=== PATIENT | female | born 1980 | race Native Hawaiian/Other Pacific Islander ===

== ENCOUNTER 2017-08-27 11:59 | Emergency (ER) | payer BC ==
[~2017-08-27] VITALS: Ht 154.9 cm; Wt 56.7 kg
[~2017-08-27 11:59] MED LIST: [UNRECOGNIZED DRUG - CODE]
[2017-08-27 12:00] VITALS: BP_SYST 99
--- NOTE | 2017-08-27 12:10 | NUR ---
Ambulatory to bed 2
--- NOTE | 2017-08-27 12:20 | NUR ---
Dr. Joyce at bedside for evaluation
[2017-08-27] MEDS ORDERED: NACL 0.9% 1,000 ML IV ONE (12:22)
[2017-08-27] MEDS ORDERED: MORPHINE 2 MG/ML INJ. SYRINGE IVP ONE (12:30)
[2017-08-27] MEDS ORDERED: ONDANSETRON HCL 4 MG/2 ML VIAL IVP ONE (12:30)
--- NOTE | 2017-08-27 12:50 | NUR ---
Pt c/o uppper abd pain since this morning +vomiting. Constant, squeezing pain. States she had a similar episode in 2009 and was dx with gastritis. Denies diarrhea, denies chest pain, denies shortness of breath. +numbness/tingling in both hands and feet. ER MD aware
[2017-08-27 13:01] LABS: BASOPHILS % (AUTO) 0.3 % (0.0-2.0); EOSINOPHILS # (AUTO) 0.2 K/uL (0.0-0.4); EOSINOPHILS % (AUTO) 1.9 % (0.0-4.0); HEMATOCRIT 37.6 % (36-48); HEMOGLOBIN 13.1 g/dL (12.0-16.0); LYMPHOCYTES # (AUTO) 1.8 K/uL (1.0-5.5); LYMPHOCYTES % (AUTO) 19.2 % (20.5-51.5); MEAN CORPUSCULAR HEMOGLOBIN 32 pg (27-31); MEAN CORPUSCULAR HGB CONC 35 % (32-36); MEAN CORPUSCULAR VOLUME 93 fL (79.0-98.0); MONOCYTES # (AUTO) 0.3 K/uL (0.0-1.0); MONOCYTES % (AUTO) 3.2 % (1.7-9.3); NEUTROPHILS # (AUTO) 7.1 K/uL (1.8-7.7); NEUTROPHILS % (AUTO) 75.4 % (40.0-70.0); PLATELET COUNT (AUTO) 290 K/uL (130-430); RED BLOOD CELL COUNT(AUTO) 4.03 MIL/uL (4.2-6.2); RED CELL DISTRIBUTION WIDTH 11.4 % (9.0-15.0); WHITE BLOOD COUNT (AUTO) 9.4 K/uL (4.8-10.8)
--- NOTE | 2017-08-27 13:05 | NUR ---
Medicated per MD orders. IVF infusing with no s/s of infiltration at this time. Will cont to monitor
--- NOTE | 2017-08-27 13:05 | NUR ---
Warm blanket provided to pt.
[2017-08-27 13:12] LABS: BILIRUBIN,URINE NEGATIVE (NEGATIVE); BLOOD, URINE 2+ (NEGATIVE); CLARITY/URINE CLEAR (CLEAR); COLOR,URINE YELLOW (YELLOW); GLUCOSE,URINE NEGATIVE (NEGATIVE); KETONES,URINE 2+ (NEGATIVE); LEUKOCYTE ESTERASE ,URINE NEGATIVE (NEGATIVE); NITRITE, URINE NEGATIVE (NEGATIVE); PROTEIN URINE NEGATIVE (NEGATIVE); UROBILINOGEN,URINE 0.2 (0.2-1.0)
[2017-08-27 13:13] LABS: CALCIUM 9.4 mg/dL (8.4-11.0); CREATININE 0.62 mg/dL (0.55-1.30); POTASSIUM 3.3 mmol/L (3.5-5.1)
[2017-08-27 13:16] LABS: ALBUMIN 4.4 g/dL (3.4-4.8); TOTAL BILIRUBIN 1.1 mg/dL (0.0-1.0)
[2017-08-27 13:30] LABS: BACTERIA,URINE FEW /HPF (None Seen); RBC,URINE 0-3 /HPF (0-3)
[2017-08-27 14:20] VITALS: BP_SYST 115
--- NOTE | 2017-08-27 14:20 | NUR ---
Patient given written and verbal discharge instructions and verbalizes understanding. ER MD discussed with patient the results and treatment provided. Patient in stable condition. ID arm band removed. IV catheter removed intact and dressing applied, no active bleeding. No Rx given. Patient educated on pain management and to follow up with PMD. Pain Scale 3/10. Opportunity for questions provided and answered.
== END 2017-08-27 14:20 | disposition home or self-care (01) ==
LOC: SED 11:59
DX: K29.70 Gastritis, unspecified, without bleeding (principal); Z88.6 Allergy status to analgesic agent
CPT/HCPCS: 36415; 80053; 81000; 81025; 83690; 85025; 96361; 96374; 96375; 99284; J2270; J2405; J7030

== ENCOUNTER 2017-08-30 11:03 | Inpatient (IN) | payer BC ==
[~2017-08-30] VITALS: Ht 154.9 cm; Wt 49.9 kg
[2017-08-30 11:03] VITALS: BP_SYST 143
[~2017-08-30 11:03] MED LIST changes: +BISM262T15; -[UNRECOGNIZED DRUG - CODE]
[2017-08-30] MEDS ORDERED: MAG HYDROX/AL HYDROX/SIMETH 30 ML, LIDOCAINE VISCOUS 2% 15ML (PO) 10 ML, BELLADONNA ALK... PO ONE ×3 (11:30)
[2017-08-30 13:38] LABS: BILIRUBIN,URINE 2+ (NEGATIVE); BLOOD, URINE 3+ (NEGATIVE); CLARITY/URINE CLEAR (CLEAR); COLOR,URINE YELLOW (YELLOW); GLUCOSE,URINE NEGATIVE (NEGATIVE); KETONES,URINE 3+ (NEGATIVE); LEUKOCYTE ESTERASE ,URINE NEGATIVE (NEGATIVE); NITRITE, URINE NEGATIVE (NEGATIVE); PH,URINE 7.5 (5.0-8.0); PROTEIN URINE NEGATIVE (NEGATIVE); UROBILINOGEN,URINE 0.2 (0.2-1.0)
[2017-08-30 13:40] LABS: BASOPHILS % (AUTO) 0.7 % (0.0-2.0); EOSINOPHILS # (AUTO) 0.1 K/uL (0.0-0.4); EOSINOPHILS % (AUTO) 1.2 % (0.0-4.0); HEMATOCRIT 39.3 % (36-48); HEMOGLOBIN 13.4 g/dL (12.0-16.0); LYMPHOCYTES # (AUTO) 1.2 K/uL (1.0-5.5); LYMPHOCYTES % (AUTO) 23.2 % (20.5-51.5); MEAN CORPUSCULAR HEMOGLOBIN 32 pg (27-31); MEAN CORPUSCULAR HGB CONC 34 % (32-36); MEAN CORPUSCULAR VOLUME 93 fL (79.0-98.0); MONOCYTES # (AUTO) 0.4 K/uL (0.0-1.0); MONOCYTES % (AUTO) 6.8 % (1.7-9.3); NEUTROPHILS # (AUTO) 3.7 K/uL (1.8-7.7); NEUTROPHILS % (AUTO) 68.1 % (40.0-70.0); PLATELET COUNT (AUTO) 320 K/uL (130-430); RED BLOOD CELL COUNT(AUTO) 4.26 MIL/uL (4.2-6.2); RED CELL DISTRIBUTION WIDTH 11.6 % (9.0-15.0); WHITE BLOOD COUNT (AUTO) 5.4 K/uL (4.8-10.8)
[2017-08-30 13:47] LABS: CALCIUM 9.6 mg/dL (8.4-11.0); CREATININE 0.52 mg/dL (0.55-1.30); POTASSIUM 3.4 mmol/L (3.5-5.1)
[2017-08-30 14:01] LABS: BACTERIA,URINE RARE /HPF (None Seen); WBC,URINE 0-3 /HPF (0-3)
[2017-08-30 14:02] LABS: TOTAL BILIRUBIN 4.3 mg/dL (0.0-1.0)
[2017-08-30 15:59] VITALS: BP_SYST 132
[2017-08-30] MEDS ORDERED: ONDANSETRON HCL 4 MG/2 ML VIAL IVP PRN (17:00)
[2017-08-30] MEDS ORDERED: METOCLOPRAMIDE HCL 10 MG/2 ML VIAL IVP PRN (17:00)
[2017-08-30] MEDS ORDERED: D5/0.45 NS 1,000 ML IV SCH (17:00)
[2017-08-30] MEDS: D5NS 1,000 ML IV SCH (17:06)
[2017-08-30] MEDS ORDERED: NS 1000 ML IV.SOLN IV ONE (17:46)
[2017-08-30] MEDS ORDERED: PROPOFOL 200MG/ 20ML VIAL (DIPRIVAN) IV ONE (17:46)
[2017-08-30] MEDS ORDERED: DIPHENHYDRAMINE INJ 50 MG/ML VIAL IVP ONE (17:46)
[2017-08-30] MEDS ORDERED: MIDAZOLAM HCL 5 MG/5 ML VIAL IVP ONE (17:46)
[2017-08-30] MEDS ORDERED: fentaNYL CITRATE/PF 100 MCG/2 ML AMP IVP ONE (17:46)
[2017-08-30] MEDS ORDERED: LR 1,000 ML IV.SOLN IV ONE (17:46)
[2017-08-30] MEDS ORDERED: [UNRECOGNIZED DRUG - OTHER] INJ ONE (17:46)
[2017-08-30] MEDS ORDERED: SEVOFLURANE 15 MIN GAS INH ONE (17:46)
[2017-08-30] MEDS ORDERED: IOHEXOL 300mgI/mL,100 ML INFUS..BTL IV ONE (17:46)
[2017-08-30] MEDS ORDERED: NS IRRIG SOLN 1000 ML IR ONE (17:46)
[2017-08-30] MEDS ORDERED: DEXAMETHASONE SOD PHOSPHATE 4 MG/ML VIAL IVP ONE (17:46)
[2017-08-30] MEDS ORDERED: GLYCOPYRROLATE 0.2 MG/ML VIAL IJ ONE (17:46)
[2017-08-30] MEDS ORDERED: METOCLOPRAMIDE HCL 10 MG/2 ML VIAL IVP ONE (17:46)
[2017-08-30] MEDS ORDERED: ROCURONIUM BROMIDE 10 MG/ML (ZEMURON) IV ONE (17:46)
[2017-08-30] MEDS: PIPERACILLIN/TAZO 3.375/DEX-IS 50 ML IV SCH ×2 (18:11→23:22)
[2017-08-30] MEDS: ONDANSETRON HCL 4 MG/2 ML VIAL IVP PRN (18:11)
[2017-08-30 19:35] VITALS: BP_SYST 123
[2017-08-31 00:04] VITALS: BP_SYST 104
[2017-08-31] MEDS: D5NS 1,000 ML IV SCH ×3 (02:46→23:22)
[2017-08-31] MEDS: PIPERACILLIN/TAZO 3.375/DEX-IS 50 ML IV SCH ×4 (05:14→23:22)
[2017-08-31 06:41] LABS: BASOPHILS % (AUTO) 0.4 % (0.0-2.0); EOSINOPHILS # (AUTO) 0.2 K/uL (0.0-0.4); EOSINOPHILS % (AUTO) 3.6 % (0.0-4.0); HEMATOCRIT 32.5 % (36-48); HEMOGLOBIN 11.1 g/dL (12.0-16.0); LYMPHOCYTES # (AUTO) 1.6 K/uL (1.0-5.5); LYMPHOCYTES % (AUTO) 30.4 % (20.5-51.5); MEAN CORPUSCULAR HEMOGLOBIN 32 pg (27-31); MEAN CORPUSCULAR HGB CONC 34 % (32-36); MEAN CORPUSCULAR VOLUME 94 fL (79.0-98.0); MONOCYTES # (AUTO) 0.4 K/uL (0.0-1.0); MONOCYTES % (AUTO) 7.7 % (1.7-9.3); NEUTROPHILS # (AUTO) 3.1 K/uL (1.8-7.7); NEUTROPHILS % (AUTO) 57.9 % (40.0-70.0); PLATELET COUNT (AUTO) 257 K/uL (130-430); RED BLOOD CELL COUNT(AUTO) 3.46 MIL/uL (4.2-6.2); RED CELL DISTRIBUTION WIDTH 11.7 % (9.0-15.0); WHITE BLOOD COUNT (AUTO) 5.3 K/uL (4.8-10.8)
[2017-08-31 06:58] LABS: ALBUMIN 3.5 g/dL (3.4-4.8); CALCIUM 8.3 mg/dL (8.4-11.0); CREATININE 0.64 mg/dL (0.55-1.30); POTASSIUM 3.4 mmol/L (3.5-5.1); TOTAL BILIRUBIN 1.7 mg/dL (0.0-1.0)
[2017-08-31 07:45] VITALS: BP_SYST 103
[2017-08-31 08:16] LABS: PROTHROMBIN TIME 10.2 SECS (9.5-12.5)
[2017-08-31] MEDS: PANTOPRAZOLE SODIUM 40 MG/VIAL (PROTONIX) IVP SCH (08:20)
[2017-08-31] MEDS ORDERED: LIDOCAINE VISCOUS 2%, 15 ML UDC MM ONE (12:30)
[2017-08-31] MEDS ORDERED: BELLADONNA ALKALOIDS/PHENOBARB 5 ML UDC PO ONE (12:30)
[2017-08-31] MEDS ORDERED: MAG-AL HYDROX/SIMETH 30 ML UDC PO ONE (12:30)
[2017-08-31 12:34] VITALS: BP_SYST 100
[2017-08-31 15:29] VITALS: BP_SYST 95
[2017-08-31] MEDS ORDERED: IOHEXOL 50 ML IV ONE (18:12)
[2017-08-31] MEDS ORDERED: LR 1,000 ML IV ONE (18:38)
[2017-08-31] MEDS ORDERED: NALOXONE HCL 0.4 MG/ML AMP (NARCAN) IVP PRN (18:45)
[2017-08-31] MEDS ORDERED: ONDANSETRON HCL 4 MG/2 ML VIAL IVP PRN ×2 (18:45→21:00)
[2017-08-31] MEDS ORDERED: fentaNYL CITRATE/PF 100 MCG/2 ML AMP IVP PRN (18:45)
[2017-08-31] MEDS ORDERED: NALBUPHINE HCL 10 MG/ML AMP IVP PRN (18:45)
[2017-08-31] MEDS ORDERED: ePHEDrine sulfate 50 MG/ML VIAL IVP PRN (18:45)
[2017-08-31] MEDS ORDERED: DIPHENHYDRAMINE INJ 50 MG/ML VIAL IVP PRN (18:45)
[2017-08-31 18:47] VITALS: BP_SYST 95
[2017-08-31] MEDS ORDERED: fentaNYL CITRATE/PF 100 MCG/2 ML AMP ONE (20:11)
[2017-08-31 20:50] VITALS: BP_SYST 114
[2017-08-31] MEDS: MORPHINE 2 MG/ML INJ. SYRINGE IVP PRN (23:24)
[2017-09-01 00:26] VITALS: BP_SYST 125
[2017-09-01] MEDS: MORPHINE 2 MG/ML INJ. SYRINGE IVP PRN ×5 (03:20→22:09)
[2017-09-01 04:00] VITALS: BP_SYST 111
[2017-09-01] MEDS: PIPERACILLIN/TAZO 3.375/DEX-IS 50 ML IV SCH ×3 (05:05→17:33)
[2017-09-01 06:05] LABS: BASOPHILS % (AUTO) 0.1 % (0.0-2.0); HEMATOCRIT 33.4 % (36-48); HEMOGLOBIN 11.1 g/dL (12.0-16.0); LYMPHOCYTES # (AUTO) 0.6 K/uL (1.0-5.5); LYMPHOCYTES % (AUTO) 7.5 % (20.5-51.5); MEAN CORPUSCULAR HEMOGLOBIN 31 pg (27-31); MEAN CORPUSCULAR HGB CONC 33 % (32-36); MEAN CORPUSCULAR VOLUME 93 fL (79.0-98.0); MONOCYTES # (AUTO) 0.4 K/uL (0.0-1.0); MONOCYTES % (AUTO) 4.1 % (1.7-9.3); NEUTROPHILS # (AUTO) 7.6 K/uL (1.8-7.7); NEUTROPHILS % (AUTO) 88.3 % (40.0-70.0); PLATELET COUNT (AUTO) 256 K/uL (130-430); RED BLOOD CELL COUNT(AUTO) 3.58 MIL/uL (4.2-6.2); RED CELL DISTRIBUTION WIDTH 11.9 % (9.0-15.0); WHITE BLOOD COUNT (AUTO) 8.6 K/uL (4.8-10.8)
[2017-09-01 06:25] LABS: ALBUMIN 3.6 g/dL (3.4-4.8); CALCIUM 8.6 mg/dL (8.4-11.0); CREATININE 0.57 mg/dL (0.55-1.30); TOTAL BILIRUBIN 1.6 mg/dL (0.0-1.0)
[2017-09-01 08:00] VITALS: BP_SYST 131
[2017-09-01] MEDS: D5NS 1,000 ML IV SCH ×2 (08:18→18:53)
[2017-09-01] MEDS: PANTOPRAZOLE SODIUM 40 MG/VIAL (PROTONIX) IVP SCH (08:18)
[2017-09-01 12:17] VITALS: BP_SYST 118
[2017-09-01 16:08] VITALS: BP_SYST 107
[2017-09-01 20:15] VITALS: BP_SYST 113
[2017-09-01] MEDS ORDERED: HYDROmorphone 1 MG INJ. 1 MG/ML AMPUL IVP ONE (20:30)
[2017-09-01] MEDS ORDERED: HYDROmorphone 2 MG/ML VIAL IVP ONE (21:00)
[2017-09-02] MEDS: PIPERACILLIN/TAZO 3.375/DEX-IS 50 ML IV SCH ×4 (00:20→17:56)
[2017-09-02 00:43] VITALS: BP_SYST 102
[2017-09-02 08:02] VITALS: BP_SYST 105
[2017-09-02] MEDS: D5NS 1,000 ML IV SCH ×3 (08:19→22:15)
[2017-09-02] MEDS: PANTOPRAZOLE SODIUM 40 MG/VIAL (PROTONIX) IVP SCH (08:19)
[2017-09-02 11:01] LABS: MONOCYTES # (AUTO) 0.4 K/uL (0.0-1.0); RED BLOOD CELL COUNT(AUTO) 3.09 MIL/uL (4.2-6.2); RED CELL DISTRIBUTION WIDTH 12.1 % (9.0-15.0); WHITE BLOOD COUNT (AUTO) 6.6 K/uL (4.8-10.8)
[2017-09-02 11:08] LABS: BASOPHILS % (AUTO) 0.3 % (0.0-2.0); EOSINOPHILS # (AUTO) 0.2 K/uL (0.0-0.4); EOSINOPHILS % (AUTO) 2.3 % (0.0-4.0); HEMATOCRIT 29.2 % (36-48); HEMOGLOBIN 9.9 g/dL (12.0-16.0); LYMPHOCYTES # (AUTO) 2.7 K/uL (1.0-5.5); LYMPHOCYTES % (AUTO) 40.1 % (20.5-51.5); MEAN CORPUSCULAR HEMOGLOBIN 32 pg (27-31); MEAN CORPUSCULAR HGB CONC 34 % (32-36); MEAN CORPUSCULAR VOLUME 94 fL (79.0-98.0); NEUTROPHILS # (AUTO) 3.3 K/uL (1.8-7.7); NEUTROPHILS % (AUTO) 51.3 % (40.0-70.0); PLATELET COUNT (AUTO) 220 K/uL (130-430)
[2017-09-02 11:18] LABS: ALBUMIN 3.1 g/dL (3.4-4.8); CALCIUM 7.7 mg/dL (8.4-11.0); CREATININE 0.55 mg/dL (0.55-1.30); POTASSIUM 3.1 mmol/L (3.5-5.1)
[2017-09-02 12:14] VITALS: BP_SYST 100
[2017-09-02] MEDS: MORPHINE 2 MG/ML INJ. SYRINGE IVP PRN (12:16)
[2017-09-02] MEDS ORDERED: DIPHENHYDRAMINE INJ 50 MG/ML VIAL IVP ONE (13:00)
[2017-09-02] MEDS ORDERED: POTASSIUM CHLORIDE 40 MEQ in NS 250 ML IV ONE (13:15)
[2017-09-02] MEDS ORDERED: IOHEXOL 50 ML IV ONE (13:46)
[2017-09-02] MEDS ORDERED: LR 1,000 ML IV ONE (14:48)
[2017-09-02] MEDS ORDERED: NALOXONE HCL 0.4 MG/ML AMP (NARCAN) IVP PRN (15:00)
[2017-09-02] MEDS ORDERED: ONDANSETRON HCL 4 MG/2 ML VIAL IVP PRN ×2 (15:00)
[2017-09-02] MEDS ORDERED: ePHEDrine sulfate 50 MG/ML VIAL IVP PRN (15:00)
[2017-09-02] MEDS ORDERED: NALBUPHINE HCL 10 MG/ML AMP IVP PRN (15:00)
[2017-09-02] MEDS ORDERED: DIPHENHYDRAMINE INJ 50 MG/ML VIAL IVP PRN (15:00)
[2017-09-02] MEDS ORDERED: fentaNYL CITRATE/PF 100 MCG/2 ML AMP IVP PRN (15:00)
[2017-09-02] MEDS ORDERED: SEVOFLURANE 15 MIN GAS INH ONE (15:20)
[2017-09-02] MEDS ORDERED: DEXAMETHASONE SOD PHOSPHATE 4 MG/ML VIAL IVP ONE (15:20)
[2017-09-02] MEDS ORDERED: LR 1,000 ML IV.SOLN IV ONE (15:20)
[2017-09-02] MEDS ORDERED: PROPOFOL 200MG/ 20ML VIAL (DIPRIVAN) IV ONE (15:20)
[2017-09-02] MEDS ORDERED: MIDAZOLAM HCL 5 MG/ML VIAL (VERSED) IV ONE (15:20)
[2017-09-02] MEDS ORDERED: SUCCINYLCHOLINE CHLORIDE 20 MG/ML(QUELICIN) IVP ONE (15:20)
[2017-09-02] MEDS ORDERED: NS IRRIG SOLN 1000 ML IR ONE (15:20)
[2017-09-02] MEDS ORDERED: METOCLOPRAMIDE HCL 10 MG/2 ML VIAL IVP ONE (15:20)
[2017-09-02] MEDS ORDERED: fentaNYL CITRATE/PF 100 MCG/2 ML AMP IVP ONE (15:20)
[2017-09-02 16:13] VITALS: BP_SYST 130
[2017-09-02] MEDS: LR 1,000 ML IV SCH (16:30)
[2017-09-02 20:00] VITALS: BP_SYST 111
[2017-09-03 00:20] VITALS: BP_SYST 102
[2017-09-03] MEDS: LR 1,000 ML IV SCH (00:22)
[2017-09-03] MEDS: PIPERACILLIN/TAZO 3.375/DEX-IS 50 ML IV SCH ×2 (00:22→05:27)
[2017-09-03 08:00] VITALS: BP_SYST 101
[2017-09-03] MEDS: PANTOPRAZOLE SODIUM 40 MG/VIAL (PROTONIX) IVP SCH (08:38)
[2017-09-03] MEDS: D5NS 1,000 ML IV SCH (08:38)
[2017-09-03] MEDS: ONDANSETRON HCL 4 MG/2 ML VIAL IVP PRN (08:46)
[2017-09-03 11:16] VITALS: BP_SYST 101
== END 2017-09-03 11:45 | disposition home or self-care (01) | DRG 419 ==
LOC: SED 11:25 → SMU 15:04
PROVIDERS: ADMIT Internal Medicine Hospice and Palliative Medicine; ATTEND Internal Medicine Hospice and Palliative Medicine
PROC: BF131ZZ Fluoroscopy of Gallbladder and Bile Ducts using Low Osmolar Contrast (ICD-10-PCS; 2017-08-31)
PROC: 0FT44ZZ Resection of Gallbladder, Percutaneous Endoscopic Approach (ICD-10-PCS; principal; 2017-08-31 18:00)
PROC: 0FC98ZZ Extirpation of Matter from Common Bile Duct, Via Natural or Artificial Opening Endoscopic (ICD-10-PCS; 2017-09-02)
DX: K80.62 Calculus of gallbladder and bile duct with acute cholecystitis without obstruction (principal); R79.89 Other specified abnormal findings of blood chemistry; Z98.891 History of uterine scar from previous surgery; Z88.6 Allergy status to analgesic agent; Z91.013 Allergy to seafood
CPT/HCPCS: 36415; 74018; 74181; 76000; 76001; 76705; 78226; 80053; 81000-TC; 83690-TC; 84703; 85025; 85610-TC; 87081; 88304; 94010; 99285; A9537; C1727; C1758; C1769; C9113; J0330; J1100; J1200; J2001; J2250; J2270; J2405; J2543; J2704; J2765; J3010; J3480; J3490; J7030; J7042; J7050; J7120; Q9967

== ENCOUNTER 2017-09-07 22:46 | Emergency (ER) | payer BC ==
[~2017-09-07] VITALS: Ht 154.9 cm; Wt 49.4 kg
[2017-09-07 22:46] VITALS: BP_SYST 120
--- NOTE | 2017-09-07 23:27 | NUR ---
Patient to ER bed 5 to gown for evaluation. Side rails up. Report given to ADALBERTO LENZ.
--- NOTE | 2017-09-07 23:30 | NUR ---
Patient AOx4, ambulatory, presents to ER with complaint of anxiety. Patient states she was recently discharged from hospital and feels overwhelmed. Patient states she has two children, ages range from 2-4yrs. Patient noted crying.
--- NOTE | 2017-09-07 23:40 | NUR ---
ER MD Starks at bedside for medical evaluation.
[2017-09-07] MEDS ORDERED: ALPRAZolam 0.25 MG TABLET PO ONE (23:45)
--- NOTE | 2017-09-08 00:20 | NUR ---
No adverse reactions noted after medication administration. Will continue to monitor.
[2017-09-08 00:26] VITALS: BP_SYST 126
--- NOTE | 2017-09-08 00:26 | NUR ---
Patient given written and verbal discharge instructions and verbalizes understanding. ER MD discussed with patient the results and treatment provided. Patient in stable condition. ID arm band removed. No Rx given. Patient educated on pain management and to follow up with PMD. Pain Scale 0/10. Opportunity for questions provided and answered.
== END 2017-09-08 00:26 | disposition home or self-care (01) ==
LOC: SED 22:46
DX: F41.0 Panic disorder [episodic paroxysmal anxiety] (principal); F41.9 Anxiety disorder, unspecified; K21.9 Gastro-esophageal reflux disease without esophagitis; Z90.49 Acquired absence of other specified parts of digestive tract; Z88.6 Allergy status to analgesic agent
CPT/HCPCS: 81025; 99284